=== PATIENT | female | born 1955 | race Caucasian/White ===

== ENCOUNTER 2019-01-03 14:56 | Inpatient (IN) | payer OTHER ==
[~2019-01-03] VITALS: Ht 167.6 cm; Wt 168.7 kg
[~2019-01-03 14:56] MED LIST: GLUCOPHAGE XR500 MG PO; LORTAB PO; NORVASC 5 MG TAB5 MG PO; PROZAC40 MG PO; VALIUM5 MG PO
[2019-01-03 14:57] VITALS: BP 148/80
[2019-01-03 15:23] LABS: URINE BLOOD 2+ (Negative); URINE CLARITY CLOUDY; URINE COLOR YELLOW; URINE GLUCOSE-RANDOM* 1+ (Negative); URINE KETONES TRACE (Negative); URINE LEUKOCYTES-REFLEX TRACE (Negative); URINE NITRITE-REFLEX NEGATIVE (Negative); URINE PROTEIN (DIPSTICK) 2+ (Negative); URINE SPECIFIC GRAVITY >= 1.030 (1.005-1.035); URINE UROBILINOGEN 0.2 E.U./dl (0.2-1.0)
[2019-01-03 15:25] LABS: ICTOTEST (BILI CONFIRMATORY) Negative (Negative); URINE BILIRUBIN NEGATIVE (Negative)
[2019-01-03 15:37] LABS: BACTERIA-REFLEX >30 Many /HPF (None Seen); CASTS None Seen /LPF (None Seen); CRYSTALS None Seen /LPF (None Seen); SQUAMOUS 4-10 Moderate /LPF (0-3); URINE RBC None Seen /HPF (0-2); URINE WBC-REFLEX 6-15 Few /HPF (0-5)
[2019-01-03] MEDS ORDERED: LOSARTAN-HCTZ1 EAC1 PO (15:38)
[2019-01-03] MEDS ORDERED: GLIMEPIRIDE4 MG PO (15:38)
[2019-01-03] MEDS ORDERED: BENADRYL25 MG PO (15:39)
[2019-01-03] MEDS ORDERED: TOPROL XL25 MG PO (15:39)
[2019-01-03] MEDS ORDERED: CHILDREN'S ASPI81 M1 PO (15:39)
[2019-01-03] MEDS ORDERED: LIPITOR10 MG PO (15:39)
[2019-01-03] MEDS ORDERED: TYLENOL325 MG PO (15:40)
[2019-01-03] MEDS ORDERED: ALEVE220 MG PO (15:40)
[2019-01-03] MEDS ORDERED: IBUPROFEN 200200 M1 PO (15:40)
[2019-01-03] MEDS ORDERED: XANAX 0.25 MG0.25 MG PO (15:41)
--- NOTE | 2019-01-03 16:12 | EKG ---
[address] [place] [address] ELECTROCARDIOGRAM REPORT Name: JAQUIHUNTREANTONIA ZARATEA [facility] [id number] Admission: 01/03/19 Attend Phys: Discharge: Date of : 51 Report #: [id number] THIS REPORT FOR: //name// [facility] ED Test Date: 2019-01-03 Test Time: 15:21:14 Pat Name: HUNTER NAILS Department: Room: Gender: F Area Sales Manager: MELANIE : 1955 Requested By: Luis Felipe Swan Order Number: [id number] MD: Cuauhtemoc Brown Measurements Intervals [place] Rate: 81 P: 24 ME: 168 QRS: 10 QRSD: 93 T: 48 QT: 392 QTc: 455 Interpretive Statements Sinus rhythm Occasional premature ventricular complexes Compared to ECG 07/17/2010 07:12:48 Ventricular premature complex(es) now present Electronically Signed On 01-03-2019 16:12:39 SKIING TEACHER by Cuauhtemoc Brown [email or web address] <ELECTRONICALLY SIGNED> By: Cuauhtemoc Brown MD, [facility] 01/03/19 1612 1521 1521 Cuauhtemoc Brown MD, FACC /EPI
[2019-01-03 16:32] LABS: HEMATOCRIT 30.5 % (37.0-47.0); HEMOGLOBIN 10.2 gm/dL (12.0-15.0); MCH 27.5 pg (26.0-34.0); MCHC 33.6 g/dL (28.0-37.0); PLATELET COUNT 202 thou/uL (150-400); RBC 3.71 mil/uL (4.20-5.00); RDW 15.2 % (10.5-14.5); WBC 21.6 thou/uL (4.0-11.0)
--- NOTE | 2019-01-03 16:34 | NUR ---
GETTING STANDING SCALE WT ON PT.
[2019-01-03 16:39] LABS: CALCIUM 9.3 mg/dL (8.5-10.1)
[2019-01-03 16:46] LABS: ALBUMIN 2.6 g/dL (3.4-5.0); TOTAL BILIRUBIN 0.6 mg/dL (<0.1-1.0); TOTAL PROTEIN 7.1 g/dL (6.4-8.2)
[2019-01-03 16:52] LABS: ABSOLUTE NEUTROPHILS 18.1 thou/uL (1.4-8.2)
[2019-01-03 16:53] LABS: PLATELET ESTIMATE NORMAL
[2019-01-03 17:41] VITALS: BP 116/45
[2019-01-03 18:01] VITALS: BP 118/62
[2019-01-03 18:30] VITALS: BP 129/58
[2019-01-03 19:30] VITALS: BP 117/61
--- NOTE | 2019-01-03 20:01 | NUR ---
PATIENT CAME UP FROM ER AT 1820. IV ANTIBITOCS STARTED. REPROT GIVEN TO NIGHT NURSE.
[2019-01-04 03:10] VITALS: BP 107/55
--- NOTE | 2019-01-04 03:32 | NUR ---
ASSUMED PT CARE 1899. PT ALERT AND OARIENTED. VSS. PT ADMISSION COMPLETED. IV DRESSING C/D/I, NO SIGNS OF INFILTRATION. PT UP TO BSC X1 ASSIST WITH WALKER. PICTURES DOCUMENTED OF Abhijit KING. PT CONSENT FORMS SIGNED. PT CALL RUDDY AND SALOMON SCALES WITHIN REACH. WILL CONTINUE POC UNTIL EOS.
[2019-01-04 08:04] VITALS: BP 119/55
--- NOTE | 2019-01-04 12:17 | NUR ---
INITIAL ASSESSMENT: Pt evaluated for d/c planning needs. Reviewed chart and spoke with nurse and pt. Pt is alert and oriented. Pt lives alone in house and was independent with ADL's prior to admission to the hospital. 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 Pt has walker and cane at home, and had home health in the past. Pt said she has been to rehab in the past. Pt is hopeful that she will be able to return home on d/c from hospital. Will remain available to assist as needed.
[2019-01-04 19:27] VITALS: BP 108/58
--- NOTE | 2019-01-04 19:53 | NUR ---
ASSUMED CARE THIS AM, SHIFT ASSESSMENT DONE, MEDS GIVEN, VSS. RH IV WENT BAD THIS AM, NEW IV STATED IN RIGHT FOREARM. ORDER RECEIVED FOR FOELY INSERTION. FOELY WAS INSERTED APPROX. 11 AM AND LEFT TO DEPENDENT DRAINAGE. ON IV ANTIBITOCS. DENIES NAUSEA, VOMITING, PAIN. WOUND CARE TEAM SAW THE PATIENT. NO ORDERS RECEIVED SO FAR. WILL CONTINUE TO ASSESS AND ASSIST WITH ADLs NEEDED.
--- NOTE | 2019-01-04 22:36 | NUR ---
REFUSED 2100 MEDS. AGITATED AND RESTLESS. SECOND ATTEMP MADE BY SECOND NURSE, WHICH PT ALSO REFUSED.
[2019-01-05 05:26] VITALS: BP 111/51
[2019-01-05 08:00] VITALS: BP 125/68
--- NOTE | 2019-01-05 08:59 | NUR ---
WOUND CONSULT: PT. WAS SEEN ON 01/04/[address] VASQUES AND MYSELF. PT. SUFFERES FROM LYMPEDEMA ALONG WITH CELLULITIS TO HER RIGHT LOWER EXTREMITY. PT. HAS ULCERATIONS TO BILATERAL LOWER EXTREMITYS IN RELATION TO THIS. RECOMMENDATIONS: WOUND CARE TO BILATERAL LOWER EXTREMITYS: GENTLY CLEANSE WITH WOUND CLEANSER OR NORMAL SALINE, APPLY SILVADENE TO WOUND BED, COVER WITH XEROFORM, ABD, KERLIX, SECURE WITH TAPE, COMPLETE CARES DAILY. PT. AND STAFF NURSE WERE INSTRUCTED ON PLAN OF CARE.
[2019-01-05 11:46] LABS: HEMOGLOBIN 9.3 gm/dL (12.0-15.0); MCH 27.5 pg (26.0-34.0); MCHC 33.3 g/dL (28.0-37.0); MCV 82.5 fL (80.0-100.0); RBC 3.4 mil/uL (4.20-5.00); RDW 15.1 % (10.5-14.5); WBC 13.8 thou/uL (4.0-11.0)
--- NOTE | 2019-01-05 14:25 | NUR ---
WOUND FOLLOW UP: PT. WAS SEEN TODAY BY DR. VASQUES AND MYSELF. PT. WOUNDS ARE NON-CHANGING FROM YESTERDAYS ASSESMENT. RECOMMENDATIONS: CONTINUE WITH CURRENT PLAN OF CARE. PT. AND STAFF NURSE WERE INSTRUCTED ON PLAN OF CARE.
[2019-01-05 16:30] VITALS: BP 126/63
--- NOTE | 2019-01-05 17:10 | NUR ---
VSS-AFEBRILE. WHEEZES IN BILATERAL LOWER LOBES, ROOM AIR. OOB WITH PHYSICAL THERAPY AND WALKER, ABLE TO AMBULATE HALLWAY. WOUND CARE TEAM IN TO ASSESS BILATERAL LOWER EXTRENITIES AND DRESS WOUNDS. BATH AND LINEN CHANGE. TOLERATED MEALS WITH NO REPORTED N/V. CALLS APPORIATELY FOR ANY NEEDED ASSISTANCE.
[2019-01-05 19:32] VITALS: BP 124/61
[2019-01-06 03:56] VITALS: BP 122/68
--- NOTE | 2019-01-06 04:00 | NUR ---
ASSUMED PT CARE 1899. PT ALERT AND ORIENTED. VSS. PT CAT IN PLACE, URINE YELLOW, GOOD OUTPUT. ATTEMPTED TO GAIN IV ACCESS X2, UNSUCCESSFUL. CHARGE NURSE INSERTED IV TO R FOREARM. REASSESSMENT COMPLETED. PT AUDIBLE WHEEZING, CTA BILAT AFTER BREATHING TREATMENTS. DRESSING TO BILAT LE C/D/I. R LE DRESSING REINFORCED. PT CALL LIGHT AND PERSONAL BELONGINGS WITHIN REACH. WILL CONTINUE POC UNTIL EOS.
[2019-01-06 08:20] VITALS: BP 113/58
[2019-01-06] MEDS ORDERED: CLEOCIN HCL150 MG PO (09:40)
[2019-01-06] MEDS ORDERED: SSD CREAM 1% 5050 GM TOP (09:41)
[2019-01-06] MEDS ORDERED: LEVAQUIN 500 M500 M2 PO (09:46)
--- NOTE | 2019-01-06 10:36 | HC ---
[facility] [address] [address] CONSULTATION Name: HUNTER NAILS Room #: 422-P [facility] IN M.R.#: [id number] Admission: 01/03/19 Attend Phys: Darcie Quesada Discharge: Date of : 53 Report #: [id number] THIS REPORT FOR: //name// CC: Darcie Serrano DATE OF SERVICE: 01/04/2019 CHIEF COMPLAINT: Lower extremity cellulitis and ulceration. HISTORY OF PRESENT ILLNESS: This is a 63-year-old female patient who was admitted to the hospital with sepsis and cellulitis and multiple ulcerations of her right lower extremity. I have been asked to see her with regard to wound care. The patient reports weeping, swelling and drainage. She has been cared for in the past at [facility]. PAST MEDICAL HISTORY: Positive for previous cholecystectomy and hernia repair, breast biopsy x 2, diabetes mellitus, hypertension, hiatal hernia, irritable bowel syndrome. ALLERGIES: KEFLEX, BACTRIM. MEDICATIONS: Fluoxetine, Glucophage, Hyzaar, Lipitor, glimepiride, Toprol-XL, Benadryl, Advil, Tylenol, Aleve, Xanax. FAMILY HISTORY: Noncontributory. 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 REVIEW OF SYSTEMS: CONSTITUTIONAL: The patient denies fever, chills or weight loss. NEUROLOGICAL: The patient denies focal weakness, numbness or tingling. EYES: The patient denies visual changes, redness or drainage. ENT: The patient denies earache, nasal drainage, sore throat. CARDIOVASCULAR: The patient denies chest pain, palpitation or diaphoresis. PULMONARY: The patient denies cough or shortness of breath. GASTROINTESTINAL: The patient denies nausea, vomiting, diarrhea or abdominal pain. ORTHOPEDIC: The patient does complain of pain, swelling, redness and drainage from her right lower extremity. Other systems in a 14-point review of systems are negative. PHYSICAL EXAMINATION: VITAL SIGNS: At this time include temperature 98.7, pulse 76, respiratory rate of 20, blood pressure 107/55. [facility] [address] [place] [address] CONSULTATION Name: HUNTER NAILS Room #: 422-P [facility] IN M.R.#: [id number] Admission: 01/03/19 Attend Phys: Darcie Quesada Discharge: Date of : 53 Report #: [id number] GENERAL: This is a chronically ill-appearing female patient who appears to be in minimal distress. HEENT: Head normocephalic. Nose and throat are clear. NECK: Supple. LUNGS: Clear. ABDOMEN: Soft. Bowel sounds present. EXTREMITIES: Lower extremities demonstrate palpable distal pulses. She has 2 to 3+ edema bilaterally from her mid thighs down to her feet. She has significant erythema, swelling and drainage to the right leg with multiple ulcerations most of which are crusted. There is no evidence of abscess at this time. NEUROLOGIC: The patient is alert and oriented and appropriate. LABORATORY DATA: Includes sodium 134, potassium 3.0, chloride 100, CO2 of 27, BUN 18, creatinine 1.0, glucose 170. White blood cell count 13.8 with a hemoglobin of 9.3, hematocrit of 28.0 and platelet count 215,000. CLINICAL IMPRESSION: 1. Cellulitis, right lower extremity. 2. Bilateral lower extremity lymphedema. 3. Multiple ulcerations secondary to lymphedema/venous insufficiency of the right lower extremity. 4. Diabetes mellitus. 5. Morbid obesity. RECOMMENDATIONS: At this point in time, the patient has been started on intravenous antibiotic therapy. We will recommend topical Xeroform gauze with topical Silvadene to the open areas of ulceration. We will do gentle compression with Kerlix. Recommend elevation for control of swelling at this time and then advance to more aggressive compression once the redness has improved. I do appreciate being asked to see the patient in consultation. <ELECTRONICALLY SIGNED> By: Elvis Rodriguez MD 01/06/19 1036 1707 2345 Elvis Rodriguez MD /nt
[2019-01-06 10:54] VITALS: BP 113/58
--- NOTE | 2019-01-06 12:08 | NUR ---
Received order from physician to arrange home health. Pt to be d/c home today. Reviewed chart and spoke with nurse, physician and pt. Pt said she does not want to return home today. Pt said she wants to stay until tomorrow. Explained that physician had discharged her and said she is medically ready for d/c. 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 Wound care physician is in agreement with plans to d/c home with home health. Offered home health services. Pt began crying and said she wants to stay at the hospital until Wednesday. Offered to send referral to SNF. Pt said she has no intention of going to SNF on d/c from hospital. Again, pt was offered home health services and she is agreeable. Pt did not have choice, and was agreeable with referral being sent to [facility]. Contacted [facility] and they will be able to provide home health. No other needs identified.
[2019-01-06 13:12] VITALS: BP 113/58
--- NOTE | 2019-01-06 16:26 | NUR ---
ASSUMED CARE OF PT AT 0700. ASSESSMENT COMPLETED. A&O,X4. DENIES PAIN. ROOM AIR, CLEAR/DIM LUNG SOUNDS, NO SOA. NON PRODUCTIVE COUGH NOTED. BILATERAL CELLULITIS, DRESSING CHANGED ORDERED, PICUTRES TAKEN UPON DISCHARGE. CAT IN PLACE, DISCONTINUED TODAY PER PROTOCOL. PT UP WITH X1 ASSIST TO USE BATHROOM. BM TODAY. HX DIABETES, NO INSULIN REQUIRED PER SLIDING SCALE, MEDS GIVEN ORDERED. NEW DISCHARGE ORDERS. PT VOICED CONCERNS ABOUT DISCHARGE, PHYSICIAN AWARE AND CASE MANAGEMENT NOTIFIED. NEW SCRIPTS FAXED TO PHARMACY, CARENOTES GIVEN. IV REMOVED, NO BLEEDING. DISCHARGE INFORMATION DISCUSSED WITH PT. 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 PT LEFT AT 1626.
--- NOTE | 2019-01-06 16:41 | NUR ---
WOUND FOLLOW UP: PT. WAS SEEN TODAY BY DR. VASQUES AND MYSELF. PT. LEGS ARE CLINICALLY BETTER TODAY THAN UPON ADMISSION. RECOMMENDATIONS: CONTINUE WITH CURRENT PLAN OF CARE. PT. AND STAFF NURSE WERE INSTRUCTED ON PLAN OF CARE.
== END 2019-01-06 16:56 | disposition home health service (06) | DRG 871 ==
LOC: ER 14:56 → 4E 16:43 → EROBS 16:43 → 4E 18:07
PROVIDERS: Emergency Medicine; ADMIT Hospitalist
DX: A41.9 Sepsis, unspecified organism (principal); E43 Unspecified severe protein-calorie malnutrition; L03.115 Cellulitis of right lower limb; L97.919 Non-pressure chronic ulcer of unspecified part of right lower leg with unspecified severity; N39.0 Urinary tract infection, site not specified; Z68.44 Body mass index [BMI] 60.0-69.9, adult; E11.9 Type 2 diabetes mellitus without complications; I10 Essential (primary) hypertension; I89.0 Lymphedema, not elsewhere classified; E66.01 Morbid (severe) obesity due to excess calories; I87.2 Venous insufficiency (chronic) (peripheral); Z79.899 Other long term (current) drug therapy; B96.20 Unspecified Escherichia coli [E. coli] as the cause of diseases classified elsewhere; Z23 Encounter for immunization; Z90.49 Acquired absence of other specified parts of digestive tract; Z88.2 Allergy status to sulfonamides; Z88.8 Allergy status to other drugs, medicaments and biological substances; Z79.82 Long term (current) use of aspirin
CPT/HCPCS: 10183; 10783

== ENCOUNTER → 2019-01-12 | Outpatient (CLI) | payer OTHER ==
[~2019-01-12] MED LIST changes: +ALEVE220 MG PO; +BENADRYL25 MG PO; +CHILDREN'S ASPI81 M1 PO; +CLEOCIN HCL150 MG PO; +GLIMEPIRIDE4 MG PO; +IBUPROFEN 200200 M1 PO; +LEVAQUIN 500 M500 M2 PO; +LIPITOR10 MG PO; +LOSARTAN-HCTZ1 EAC1 PO; +SSD CREAM 1% 5050 GM TOP; +TOPROL XL25 MG PO; +TYLENOL325 MG PO; +XANAX 0.25 MG0.25 MG PO
== END ==
LOC: HYPER 06:57
DX: L03.115 Cellulitis of right lower limb (principal); A41.9 Sepsis, unspecified organism; E66.01 Morbid (severe) obesity due to excess calories; I10 Essential (primary) hypertension; M19.90 Unspecified osteoarthritis, unspecified site; F32.9 Major depressive disorder, single episode, unspecified; F41.9 Anxiety disorder, unspecified; Z79.84 Long term (current) use of oral hypoglycemic drugs; Z79.82 Long term (current) use of aspirin; Z79.4 Long term (current) use of insulin; Z87.891 Personal history of nicotine dependence; Z68.43 Body mass index [BMI] 50.0-59.9, adult

== ENCOUNTER → 2019-02-01 | Outpatient (CLI) | payer OTHER | LOC: HYPER 01-25 07:19 | DX: L03.115 Cellulitis of right lower limb (principal); L03.116 Cellulitis of left lower limb; E66.01 Morbid (severe) obesity due to excess calories; I89.0 Lymphedema, not elsewhere classified; I10 Essential (primary) hypertension; M19.90 Unspecified osteoarthritis, unspecified site; A41.9 Sepsis, unspecified organism; F41.9 Anxiety disorder, unspecified; F32.9 Major depressive disorder, single episode, unspecified; Z79.84 Long term (current) use of oral hypoglycemic drugs; Z79.82 Long term (current) use of aspirin; Z79.4 Long term (current) use of insulin; Z68.43 Body mass index [BMI] 50.0-59.9, adult; Z99.2 Dependence on renal dialysis; Z87.891 Personal history of nicotine dependence ==

== ENCOUNTER → 2019-02-15 | Outpatient (CLI) | payer OTHER | LOC: HYPER 06:41 | DX: L03.115 Cellulitis of right lower limb (principal); L03.114 Cellulitis of left upper limb; I89.0 Lymphedema, not elsewhere classified; A41.9 Sepsis, unspecified organism; E66.01 Morbid (severe) obesity due to excess calories; I10 Essential (primary) hypertension; K21.9 Gastro-esophageal reflux disease without esophagitis; M19.90 Unspecified osteoarthritis, unspecified site; F32.9 Major depressive disorder, single episode, unspecified; F41.9 Anxiety disorder, unspecified; Z87.891 Personal history of nicotine dependence; Z79.4 Long term (current) use of insulin; Z68.43 Body mass index [BMI] 50.0-59.9, adult; Z79.84 Long term (current) use of oral hypoglycemic drugs; Z79.82 Long term (current) use of aspirin ==

== ENCOUNTER → 2019-03-14 | Outpatient (CLI) | payer OTHER | LOC: HYPER 03-06 07:02 | DX: L03.115 Cellulitis of right lower limb (principal); L03.116 Cellulitis of left lower limb; I10 Essential (primary) hypertension; I89.0 Lymphedema, not elsewhere classified; A41.9 Sepsis, unspecified organism; M19.90 Unspecified osteoarthritis, unspecified site; E66.01 Morbid (severe) obesity due to excess calories; R60.0 Localized edema; F41.9 Anxiety disorder, unspecified; F32.9 Major depressive disorder, single episode, unspecified; Z87.891 Personal history of nicotine dependence; Z79.84 Long term (current) use of oral hypoglycemic drugs; Z79.4 Long term (current) use of insulin; Z68.43 Body mass index [BMI] 50.0-59.9, adult ==

== ENCOUNTER → 2019-07-04 | Outpatient (CLI) | payer OTHER | LOC: HYPER 06:45 | DX: L03.115 Cellulitis of right lower limb (principal); A41.9 Sepsis, unspecified organism; E66.01 Morbid (severe) obesity due to excess calories; E11.9 Type 2 diabetes mellitus without complications; I89.0 Lymphedema, not elsewhere classified; R60.0 Localized edema; I10 Essential (primary) hypertension; K21.9 Gastro-esophageal reflux disease without esophagitis; M19.90 Unspecified osteoarthritis, unspecified site; F32.9 Major depressive disorder, single episode, unspecified; F41.9 Anxiety disorder, unspecified; Z79.84 Long term (current) use of oral hypoglycemic drugs; Z79.82 Long term (current) use of aspirin; Z79.4 Long term (current) use of insulin; Z87.891 Personal history of nicotine dependence; Z68.43 Body mass index [BMI] 50.0-59.9, adult ==

== ENCOUNTER → 2020-02-22 | Outpatient (CLI) | payer OTHER | LOC: HYPER 10:19 | DX: I83.028 Varicose veins of left lower extremity with ulcer other part of lower leg (principal); E11.622 Type 2 diabetes mellitus with other skin ulcer; L97.821 Non-pressure chronic ulcer of other part of left lower leg limited to breakdown of skin; I89.0 Lymphedema, not elsewhere classified; L03.115 Cellulitis of right lower limb; L03.116 Cellulitis of left lower limb; E11.40 Type 2 diabetes mellitus with diabetic neuropathy, unspecified; I10 Essential (primary) hypertension; M19.90 Unspecified osteoarthritis, unspecified site; E66.01 Morbid (severe) obesity due to excess calories; F41.9 Anxiety disorder, unspecified; F32.9 Major depressive disorder, single episode, unspecified; Z68.43 Body mass index [BMI] 50.0-59.9, adult; Z87.891 Personal history of nicotine dependence; Z79.82 Long term (current) use of aspirin; Z79.4 Long term (current) use of insulin ==

== ENCOUNTER 2021-03-29 16:28 | Inpatient (IN) | payer OTHER ==
[~2021-03-29] VITALS: Ht 167.6 cm; Wt 156.1 kg
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
[2021-03-29 16:29] VITALS: BP 151/74
--- NOTE | 2021-03-29 16:50 | NUR ---
BRANDY ARREDONDO, PT FRIEND
[2021-03-29 16:55] LABS: ABSOLUTE NEUTROPHILS 7.3 thou/uL (1.4-8.2); EOSINOPHILS 1.8 % (0.0-3.0); HEMATOCRIT 32.3 % (37.0-47.0); HEMOGLOBIN 10.5 gm/dL (12.0-15.0); LYMPHOCYTES 12.6 % (24.0-44.0); MCH 28.8 pg (26.0-34.0); MCHC 32.6 g/dL (28.0-37.0); MCV 88.5 fL (80.0-100.0); MONOCYTES 7.4 % (1.0-8.0); PLATELET COUNT 226 thou/uL (150-400); POLYS 77.2 % (36.0-66.0); RBC 3.65 mil/uL (4.20-5.00); RDW 17.3 % (10.5-14.5); WBC 9.4 thou/uL (4.0-11.0)
[2021-03-29 17:05] LABS: INR 2.52; PROTIME 26.3 Seconds (10.5-12.1)
[2021-03-29 17:07] LABS: ANION GAP 12 mmol/L (7-16); BUN 24 mg/dL (7-18); CALCIUM 8.7 mg/dL (8.5-10.1); CHLORIDE 107 mmol/L (98-107); CO2 26 mmol/L (21-32); GLUCOSE 196 mg/dL (74-106); POTASSIUM 4.5 mmol/L (3.5-5.1); SODIUM 145 mmol/L (136-145)
[2021-03-29 17:13] LABS: BE(vivo) 1.4 mmol/L (-2 to +3); HCO3 26.1 mmol/L (22.0-26.0); PCO2 41.3 mmHg (35.0-45.0); PO2 83.1 mmHg (80.0-100.0); pH 7.418 (7.360-7.450); sO2 96.4 % (92.0-98.0)
[2021-03-29 17:16] LABS: ALBUMIN 3.1 g/dL (3.4-5.0); SGOT 11 U/L (15-37); SGPT 15 U/L (14-59); TOTAL BILIRUBIN 0.5 mg/dL (0.2-1.0); TOTAL PROTEIN 6.5 g/dL (6.4-8.2); TROPONIN-I <0.06 ng/mL (<0.06)
--- NOTE | 2021-03-29 18:00 | NUR ---
UNABLE TO ESTABLISH IV ACCESS. IV TEAM BEING PAGED.
[2021-03-29 18:44] VITALS: BP 152/91
[2021-03-29 19:15] VITALS: BP 138/74
[2021-03-29] MEDS ORDERED: WARFARIN SODIUM2 MG PO (22:39)
[2021-03-29] MEDS ORDERED: JANTOVEN6 MG PO (22:40)
[2021-03-29] MEDS ORDERED: DILTIAZEM ER180 M2 PO (22:40)
[2021-03-29] MEDS ORDERED: METFORMIN HCL500 MG PO (22:45)
[2021-03-29] MEDS ORDERED: METFORMIN HCL500 M1 PO (22:47)
[2021-03-29] MEDS ORDERED: BUMEX2 MG PO (22:49)
[2021-03-29] MEDS ORDERED: COZAAR 25 MG TA25 M1 PO (22:51)
[2021-03-30 00:21] VITALS: BP 145/91
[2021-03-30 04:00] VITALS: BP 135/69
[2021-03-30 05:11] LABS: HEMATOCRIT 31.7 % (37.0-47.0); HEMOGLOBIN 10.3 gm/dL (12.0-15.0); MCH 28.8 pg (26.0-34.0); MCHC 32.4 g/dL (28.0-37.0); MCV 88.8 fL (80.0-100.0); RBC 3.57 mil/uL (4.20-5.00); RDW 17.1 % (10.5-14.5); WBC 8.3 thou/uL (4.0-11.0)
[2021-03-30 05:20] LABS: INR 2.13; PROTIME 22.4 Seconds (10.5-12.1)
[2021-03-30 05:22] LABS: CALCIUM 8.1 mg/dL (8.5-10.1); CREATININE 0.9 mg/dL (0.6-1.0); POTASSIUM 3.9 mmol/L (3.5-5.1)
--- NOTE | 2021-03-30 05:46 | NUR ---
PT ARRIVED TO UNIT APPROX 191. ADMISSION AND ASSESSMENT COMPLETED, CONSENTS SIGNED. PT REPORTS BEING SOB WITH MINIMAL EXERTION AND C/O HEART FLUTTERING/PALPITATIONS. ECHO AND BLE US COMPLETED AT BEDSIDE. PT CONCERNED ABOUT RECEIVING HER NIGHT MEDICATIONS--WARFARIN AND DILTIAZEM; ALSO ASKED IF SHE WAS SUPPOSED TO GET LASIX. OBTAINED ORDERS TO START BOTH MEDS, WELL IV LASIX TO IMPROVED HER BREATHING, AND ORDER FOR CAT FOR ACCURATE I&O. SHE HAS BEEN AFIB OVERNIGHT, HR IN LOW 100'S, AFTER RECEIVING LASIX HER HR WAS IN 80'S. MULTIPLE SMALL WOUNDS R/T CELLULITIS NOTED ON LEGS AND ONE SPOT ON ABD, TOOK PHOTOS PER PROTOCOL. ALSO HAS MULTIPLE BRUISES FROM RECENT FALL AND YEASTY REDNESS UNDER ABD FOLDS. NO OTHER CONCERNS, WILL CONTINUE TO MONITOR.
[2021-03-30 08:00] VITALS: BP 135/69
--- NOTE | 2021-03-30 10:46 | 2DMMODE ---
[facility] [place] [place] [address] 2 D/M-MODE ECHOCARDIOGRAM Name: HUNTER NAILS Gabe Room #: 213-P ADM IN M.R.#: [id number] Admission: 03/29/21 Attend Phys: Clarissa Zurita MD Discharge: Date of : 51 Report #: [id number] THIS REPORT FOR: cc: Liya Serrano MD, Julie MD Lammoglia, Francisco J. MD ~ APPROVED REPORT Study performed: 03/29/2021 19:24:43 EXAM: Comprehensive 2D, Doppler, and color-flow Echocardiogram Patient Location: Bedside Room #: 213 Status: stat BSA: 2.44 HR: 102 bpm BP: 132/87 mmHg Rhythm: Atrial Fibrillation Other Information Study Quality: Adequate Risk Factors: Cardiac Risk Factors: HTN Indications Congestive Heart Failure Atrial Fibrillation R/O Pericardial Effusion 2D Dimensions IVSd: 11.88 (7-11mm) LVOT Diam: 21.00 (18-24mm) LVDd: 54.40 mm PWd: 14.96 (7-11mm) Ascending Ao: 35.02 (22-36mm) LVDs: 39.78 (25-40mm) Aortic Root: 29.27 mm LV Single Plane 4CH: 47.41 % LV Single Plane 2CH: 56.97 % Volumes Left Atrial Volume (Systole) Single Plane 4CH: 113.01 mL Single Plane 2CH: 123.97 mL LA ESV Index: 57.00 mL/m2 [facility] [address] [place] [address] 2 D/M-MODE ECHOCARDIOGRAM Name: HUNTER NAILS Room #: 213-P ADM IN .R.#: [id number] Admission: 03/29/21 Attend Phys: Clarissa Zurita MD Discharge: Date of : 51 Report #: [id number] Aortic Valve AoV Peak Avtar.: 1.73 m/s AO Peak Gr.: 12.71 mmHg LVOT Max P.94 mmHg LVOT Max V: 0.86 m/s KEO Vmax: 1.38 cm2 Pulmonary Valve PV Peak Avtar.: 1.35 m/s PV Peak Gr.: 7.47 mmHg Tricuspid Valve TR Peak Avtar.: 3.12 m/s RAP Estimate: 10.00 mmHg TR Peak Gr.: 39.62 mmHg PA Pressure: 50.00 mmHg Left Ventricle The left ventricle is normal size. There is normal LV segmental wall motion. Mild to moderate concentric left ventricular hypertrophy. Left ventricular systolic function is normal. The left ventricular ejection fraction is within the normal range. LVEF is 50-55%. This study is not technically sufficient to allow evaluation of the LV diastolic function due to atrial fibrillation. Right Ventricle Right ventricle is dilated. The right ventricular systolic function is normal. Atria Left atrium is severely dilated. Right atrium is severely dilated. Aortic Valve The aortic valve is mildly sclerotic. No aortic regurgitation is present. There is no aortic valvular stenosis. Mitral Valve The mitral valve is normal in structure. moderate mitral regurgitation with an eccentric jet. No evidence of mitral valve stenosis. Tricuspid Valve The tricuspid valve is normal in structure. Moderate tricuspid regurgitation. Pulmonary artery pressure is 50 mmHg. Pulmonic Valve The pulmonary valve is normal in structure. Mild pulmonic regurgitation. [facility] [address] [place] [address] 2 D/M-MODE ECHOCARDIOGRAM Name: HUNTER NAILS Room #: 213-P [facility] IN ..#: [id number] Admission: 03/29/21 Attend Phys: Clarissa Zurita MD Discharge: Date of : 51 Report #: [id number] Great Vessels The aortic root is normal in size. The ascending aorta is normal in size. IVC is dilated and collapses >50% with inspiration. Pericardium There is no pericardial effusion. <Conclusion> The left ventricle is normal size. Mild to moderate concentric left ventricular hypertrophy. LVEF is 50-55%. Right ventricle is dilated. The right ventricular systolic function is normal. Left atrium is severely dilated. Right atrium is severely dilated. The aortic valve is mildly sclerotic. The mitral valve is normal in structure. moderate mitral regurgitation with an eccentric jet. The tricuspid valve is normal in structure. Moderate tricuspid regurgitation. Pulmonary artery pressure is 50 mmHg. The pulmonary valve is normal in structure. Mild pulmonic regurgitation. The aortic root is normal in size. There is no pericardial effusion. <ELECTRONICALLY SIGNED> By: Nicolas Saleh MD 03/30/21 1046 1046 1046 Nicolas Saleh MD /INF
[2021-03-30 14:00] VITALS: BP 130/70
[2021-03-30] MEDS ORDERED: METFORMIN HCL500 M3 PO (14:47)
--- NOTE | 2021-03-30 18:38 | NUR ---
AAOX4. CALM, COOPERATIVE. STAYS INFORMED ABOUT HER CARE. AFIB PER TELE. DR. RODRÍGUEZ RESTARTS HOME MEDS. DR. YUNG SEES. FALL PRECAUTIONS IN PLACE.
[2021-03-30 20:15] VITALS: BP 140/84
--- NOTE | 2021-03-31 03:17 | NUR ---
PATIENT COMPLAIN OF LEFT THUMB DISCOMFORT.DIDN'T WANT ANY PAIN MEDS.PATIENT ON O2 2L NC;SOMETIMES O2 WILL FALL OFF OR SOMETIMES PT TAKING IT OFF.COMPLAIN THAT SHE HAD NOT ANY BM TODAY.MONITOR SHOWS SA.POC CONTINUED.
[2021-03-31 04:45] VITALS: BP 129/92; BP 150/81
[2021-03-31 06:55] LABS: HEMATOCRIT 33.5 % (37.0-47.0); HEMOGLOBIN 10.7 gm/dL (12.0-15.0); MCH 28.6 pg (26.0-34.0); MCV 89.3 fL (80.0-100.0); RBC 3.75 mil/uL (4.20-5.00); RDW 17.2 % (10.5-14.5); WBC 8.5 thou/uL (4.0-11.0)
[2021-03-31 06:59] LABS: CALCIUM 8.2 mg/dL (8.5-10.1); CREATININE 0.8 mg/dL (0.6-1.0); MAGNESIUM 1.8 mg/dL (1.8-2.4); POTASSIUM 4.5 mmol/L (3.5-5.1)
--- NOTE | 2021-03-31 07:05 | EKG ---
[address] [facility] 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
[2021-03-31 08:00] VITALS: BP 140/83
--- NOTE | 2021-03-31 09:13 | EKG ---
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 : 1955 Requested By: Clarissa Zurita Order Number: [id number] MD: Cuauhtemoc Brown Measurements Intervals [place] Rate: 114 P: [place]: QRS: 21 QRSD: 80 T: 28 QT: 351 QTc: 484 Interpretive Statements Atrial fibrillation Compared to ECG 01/03/2019 15:21:14 Sinus rhythm no longer present Ventricular premature complex(es) no longer present Electronically Signed On 03-31-2021 9:12:50 CDT by Cuauhtemoc Brown [email or web address] <ELECTRONICALLY SIGNED> By: Cuauhtemoc Brown MD, [facility] 03/31/2112 170 01 Cuauhtemoc Brown MD, FACC /EPI
[2021-03-31 12:00] VITALS: BP 138/73
--- NOTE | 2021-03-31 12:18 | NUR ---
ALERT AND ORIENTED, VITALS STABLE. TOLERATING DIET W/O NAUSEA. PT AND OT EVALUATED PATIENT. CELLULITIS NOTED ON BLE AND WOUND CARE ON BOARD. CAT WITH ADEQATE OUTPUT NOTED. WILL CONTINUE WITH POC.
--- NOTE | 2021-03-31 13:10 | NUR ---
Assess due to pt with class III extreme obesity, BMI 61. Admit with CHF. Hx diabetes. BG are 130-181, requires metformin, ss insulin, glimerperide. Will add carb control to current diet order. Nutrition education provided-see RD nutrition education documentation. Low nutrition risk
[2021-03-31 16:00] VITALS: BP 145/76
--- NOTE | 2021-03-31 16:28 | NUR ---
BPCI letter provided to patient, lives in home setting
--- NOTE | 2021-03-31 17:20 | NUR ---
Patient admits with a fall and CHF exacerbation. Patient is rec IV lasix. Patient reports a stay at [facility] in which she reports they were consistantly discussing rehab. She did not want to go to rehab. She reports she discharged with home health. She was on service with [facility] care. She reports she had a disagreement with an RN and questions if will accept her back [facility] service[facility] with [facility] in am. She also reports Dr Thompson mentioned and cardiac HH agency. She requests caset sp with Dr Thompson regarding agency. Patient wants to return home she does not want rehab. She is agreeable to care. She lives in ran home with one step to enter from [facility]. She lives alone. She has a walker and lift chair in home. She retired. Strategic Partner Development Manager is Dr Silva. She is a patient of wound care clinic. Casemgt following for dc planning.
[2021-03-31 20:15] VITALS: BP 147/79
[2021-04-01 04:45] VITALS: BP 140/87
[2021-04-01 04:53] LABS: HEMATOCRIT 33.4 % (37.0-47.0); HEMOGLOBIN 10.5 gm/dL (12.0-15.0); MCH 28.5 pg (26.0-34.0); MCHC 31.6 g/dL (28.0-37.0); MCV 90.1 fL (80.0-100.0); RBC 3.71 mil/uL (4.20-5.00); WBC 9.1 thou/uL (4.0-11.0)
[2021-04-01 05:32] LABS: CALCIUM 8.3 mg/dL (8.5-10.1); CREATININE 0.9 mg/dL (0.6-1.0); POTASSIUM 3.7 mmol/L (3.5-5.1)
[2021-04-01 08:00] VITALS: BP 148/82
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
--- NOTE | 2021-04-01 08:19 | HC ---
[facility] [place] [address] CONSULTATION Name: HUNTER NAILS Room #: 213-P ADM IN M.R.#: [id number] Admission: 03/29/21 Attend Phys: Clarissa Zurita MD Discharge: Date of : 51 Report #: [id number] THIS REPORT FOR: cc: Liya Serrano MD, Julie MD [place],Cheng Diaz MD ~ DATE OF SERVICE: 03/30/2021 WOUND CARE CONSULTATION NOTE REASON FOR CONSULTATION: Super morbid obesity with bilateral lymphedema of lower extremities with bilateral leg cellulitis and open wounds of left leg. 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 She is a wound care patient of Dr. Rodriguez and Dr. Hurtado and seen in the past for troubles with her legs. She has chronic lymphedema. She does not use compression at home. She is admitted after a fall at home and for atrial fibrillation and for cellulitis and wounds of the lower extremities. She has been admitted in the past for cellulitis of her legs. She has had some knee pain after a mechanical fall. Wound care is consulted due to cellulitis of both legs. The patient complains of some weepiness of both legs. She gets some moisture in her shoes. ALLERGIES: BACTRIM AND KEFLEX. PAST MEDICAL HISTORY: Super morbid obesity, lower extremity edema, history of cellulitis of the legs requiring hospitalization in the past, atrial fibrillation with rapid ventricular response, congestive heart failure, jfu-qohamoi-gffrurowo diabetes mellitus. PAST SURGICAL HISTORY: Cholecystectomy, hernia repair, breast biopsy, nasopharyngeal tumor surgery. MEDICATIONS: Currently include IV Zosyn. RADIOLOGIC STUDIES: Ultrasound shows no evidence of deep vein thrombosis. PHYSICAL EXAMINATION: GENERAL: Shows a pleasant elderly woman with super morbid obesity. She has no respiratory distress. HEENT: Mucous membranes are moist. She is edentulous. ABDOMEN: Super morbidly obese. EXTREMITIES: Shows chronic lymphedema. The patient has some skin blebs of both legs without active weeping. There is mild erythema of the right leg [facility] [address] [place] [address] CONSULTATION Name: JAQUIHUNTER L Room #: 213-P [facility] [place] IN .R.#: [id number] Admission: 03/29/21 Attend Phys: Clarissa Zurita MD Discharge: Date of : 51 Report #: [id number] circumferentially. There is erythema of the left leg with open wounds, largest 1.2 cm of the left lateral calf with some crusted drainage. No active weeping. IMPRESSION: 1. Super morbid obesity with alveolar hypoventilation. 2. History of atrial fibrillation. 3. Bilateral lower extremity lymphedema. 4. Moderate protein-calorie malnutrition, albumin 3.1. 5. Diabetes mellitus 2 with skin complications. 6. Cellulitis of right and left leg. 7. Open draining wound of left leg. PLAN: Wound culture ordered for open wound of the left leg. Continue IV Zosyn. We will consider compression of the lower extremities once cellulitis has resolved. Wound care team will follow. Topical gentamicin to open wound of the left leg with foam border. <ELECTRONICALLY SIGNED> By: Cheng Romero MD 04/01/21 0819 [id number] Chneg Romero MD /nt
[2021-04-01 12:22] VITALS: BP 128/76
--- NOTE | 2021-04-01 15:31 | NUR ---
Received awake on bed. Due medications given as prescribed, able to swallow meds w/o difficulty. Vital signs stable. On telemetry; no complains and signs of chest pain, crushing sensation and heaviness. Assisted in ADLs. On O2 at 2lpm via nasal cannula- not using O2 at home; weanning off. On heart healthy, carb controlled diet- tolerating well; assisted in eating and drinking; no nausea, no vomiting and no abdominal pain noted. On blood sugar monitoring, taken and recorded accordingly. With dewey in place- draining well; output measured and recorded accordingly. With cellulitis- bilateral LE. With SL at L AC- SL; on IV antibiotics. Falls bundle in place. No complains of pain made during assessment. Pt very anxious today re: discharge disposition; wanting to go home with home health rather than SNF or Rehab- informed pt re: recommendations made by physician and therapists- Dr Marin informed re: this. Complained of dyspepsia- Dr Marin informed since pt has no PRN meds- orders obtained- med given as prescribed. To continue monitoring patient.
[2021-04-01 16:00] VITALS: BP 156/84
--- NOTE | 2021-04-01 16:40 | NUR ---
[facility] cannot accept patient for home health services due to non compliance. Patient met with [facility] today. Patient agreeable to work with therapy. She reports interest in [facility]. Lilliam SULLIVAN practioner evaled patient and agreeable for [facility] admission. patient needs to determine if her dog at vet if she can extend his stay. She wants to determine that first.
[2021-04-01 20:26] VITALS: BP 140/78
--- NOTE | 2021-04-02 04:00 | NUR ---
ASSUMED PT CARE AT AROUND 1915 HRS. PT IS PLEASANT AND CONVERSATIONAL.CAT TO D/D, DIURESING WELL.PT DENIES PAIN. LYMHEDEMA WRAPS TO BLE .PT MOVES SELF IN BED-THUS REFUSING TO BE REPOSITIONEDSATTING WELL ON .AWAITING REHAB AUTHOURIZATION.
[2021-04-02 04:10] VITALS: BP 133/84
[2021-04-02 04:31] LABS: INR 2.03; PROTIME 21.4 Seconds (10.5-12.1)
[2021-04-02 05:47] LABS: CALCIUM 8.4 mg/dL (8.5-10.1); CREATININE 0.9 mg/dL (0.6-1.0); MAGNESIUM 1.7 mg/dL (1.8-2.4); POTASSIUM 3.5 mmol/L (3.5-5.1)
[2021-04-02 07:36] VITALS: BP 136/83
[2021-04-02 11:17] VITALS: BP 133/75
--- NOTE | 2021-04-02 13:15 | NUR ---
ASSUMED PT CARE THIS AM. PT VSS, A&OX4. PATIENT ABLE TO MAKE NEEDS KNOWN. CAT CATHETER IN PLACE, DRAINING WELL. PATIENT HAS NOT GOTTEN UP DURING THIS SHIFT TO AMBULATE. BILATERAL LOWER EXTREMETIES ARE WRAPPED. REDNESS NOTICED TO THE PANUS AREA. IV PATENT, SALINE LOCKED. TOOK MORNING MEDS WITHOUT ISSUE. PATIENT REPORTS FEELING HOPELESS AND DOWN, CONSULT PLACED FOR PSYCHIATRIST. PATIENT ON TELEMETRY. FALL PRECAUTIONS ARE IN PLACE.
--- NOTE | 2021-04-02 15:05 | NUR ---
Case discussed with the care team and cardiology. Pt agreeable to [facility] acute rehab stay. They can accept her tomorrow. Pt still diuresing today. Pt had long visit with cardiology today. Will fax referrals to [facility] as possible hh options when dc'd from acute rehab as [facility] will not accept her back.
--- NOTE | 2021-04-02 17:33 | NUR ---
PLan for [facility] tomorrow. Patient with multiple questions regarding [facility] requested liason see patient in am.
[2021-04-02 17:45] VITALS: BP 128/61
[2021-04-02 19:29] VITALS: BP 138/61
[2021-04-03 04:02] VITALS: BP 137/78
--- NOTE | 2021-04-03 04:49 | NUR ---
tova nevarez wrapped with melissa wraps, started nystatin powder in rash areas of groin and legs, no c/o pain, ex. catheter with yellow urine, vss, plan tx to [facility] today, will con't to monitor per ppoc.
[2021-04-03 07:25] VITALS: BP 128/76
[2021-04-03 09:02] VITALS: BP 128/76
[2021-04-03 09:16] LABS: CREATININE 0.8 mg/dL (0.6-1.0)
--- NOTE | 2021-04-03 11:11 | NUR ---
Pt dcing to [facility] acute rehab today. [facility] did call back and can accept the pt for hh services when dc'd from rehab.
[2021-04-03] MEDS ORDERED: LEVOFLOXACIN500 MG PO (12:04)
[2021-04-03] MEDS ORDERED: NYAMYC15 GM TOP (12:04)
[2021-04-03] MEDS ORDERED: CALTRATE-600 W1 EACH PO (12:04)
[2021-04-03] MEDS ORDERED: PEPCID20 MG PO (12:04)
[2021-04-03] MEDS ORDERED: MAGNESIUM400 MG PO (12:04)
[2021-04-03] MEDS ORDERED: DEMADEX20 MG PO (12:04)
[2021-04-03] MEDS ORDERED: COLACE 100 MG100 MG PO (12:04)
[2021-04-03] MEDS ORDERED: K-DUR 20 MEQ T20 MEQ PO (12:04)
[2021-04-03] MEDS ORDERED: HUMALOG100 UNIT/1 SUBQ (12:04)
== END 2021-04-03 15:22 | DRG 291 ==
LOC: ER 16:28 → 2N 18:36 → EROBS 18:36 → 2N 19:03
PROVIDERS: Hospitalist; Nurse Practitioner; Nurse Practitioner Acute Care; Physician Assistant; ADMIT Internal Medicine; ATTEND Internal Medicine
DX: I11.0 Hypertensive heart disease with heart failure (principal); J96.01 Acute respiratory failure with hypoxia; I48.20 Chronic atrial fibrillation, unspecified; L03.115 Cellulitis of right lower limb; L03.116 Cellulitis of left lower limb; E66.2 Morbid (severe) obesity with alveolar hypoventilation; E44.0 Moderate protein-calorie malnutrition; Z68.43 Body mass index [BMI] 50.0-59.9, adult; I50.33 Acute on chronic diastolic (congestive) heart failure; Z20.822 Contact with and (suspected) exposure to COVID-19; S81.802A Unspecified open wound, left lower leg, initial encounter; E11.628 Type 2 diabetes mellitus with other skin complications; E83.42 Hypomagnesemia; M17.0 Bilateral primary osteoarthritis of knee; F32.9 Major depressive disorder, single episode, unspecified; K58.9 Irritable bowel syndrome, unspecified; R53.81 Other malaise; K44.9 Diaphragmatic hernia without obstruction or gangrene; I89.0 Lymphedema, not elsewhere classified; E11.42 Type 2 diabetes mellitus with diabetic polyneuropathy; R41.89 Other symptoms and signs involving cognitive functions and awareness; I08.1 Rheumatic disorders of both mitral and tricuspid valves; Z79.01 Long term (current) use of anticoagulants; Z88.2 Allergy status to sulfonamides; Z88.8 Allergy status to other drugs, medicaments and biological substances; Z90.49 Acquired absence of other specified parts of digestive tract; Z91.11 Patient's noncompliance with dietary regimen; Z91.14 Patient's other noncompliance with medication regimen; W18.39XA Other fall on same level, initial encounter; Y93.89 Activity, other specified; Y92.89 Other specified places as the place of occurrence of the external cause; Y99.8 Other external cause status
CPT/HCPCS: 10081

== ENCOUNTER 2021-04-02 07:59 | Inpatient (IN) | payer OTHER ==
[~2021-04-02] VITALS: Ht 167.6 cm; Wt 150.1 kg
[~2021-04-02 07:59] MED LIST changes: +BUMEX2 MG PO; +COZAAR 25 MG TA25 M1 PO; +DILTIAZEM ER180 M2 PO; +JANTOVEN6 MG PO; +METFORMIN HCL500 M1 PO; +METFORMIN HCL500 M3 PO; +METFORMIN HCL500 MG PO; +WARFARIN SODIUM2 MG PO
[2021-04-03] MEDS ORDERED: K-DUR 20 MEQ T20 MEQ PO (12:04)
[2021-04-03] MEDS ORDERED: COLACE 100 MG100 MG PO (12:04)
[2021-04-03] MEDS ORDERED: PEPCID20 MG PO (12:04)
[2021-04-03] MEDS ORDERED: MAGNESIUM400 MG PO (12:04)
[2021-04-03] MEDS ORDERED: NYAMYC15 GM TOP (12:04)
[2021-04-03] MEDS ORDERED: LEVOFLOXACIN500 MG PO (12:04)
[2021-04-03] MEDS ORDERED: HUMALOG100 UNIT/1 SUBQ (12:04)
[2021-04-03] MEDS ORDERED: DEMADEX20 MG PO (12:04)
[2021-04-03] MEDS ORDERED: CALTRATE-600 W1 EACH PO (12:04)
[2021-04-03 15:41] VITALS: BP 126/69
--- NOTE | 2021-04-03 18:50 | NUR ---
PATIENT ARRIVED FROM THIS DAY AT APPROX 1530. ORIENTED TO ROOM. ASSESSMENT AND ADMISSION COMPLETED. VOICED NEED FOR COUMADIN; PHARMACY NOTIFIED. ALL OTHER MEDS RESTARTED. TRANSFERRED FROM CHAIR TO BED X2 ASSIST. STEPHANIA IN PLACE; TO BE DC'D 04/04/21. TOLERATED DINNER W NO ISSUES. WILL ENDORSE TO NOC. RN
[2021-04-03 20:37] VITALS: BP 133/63
--- NOTE | 2021-04-04 02:49 | NUR ---
ASSUMED CARE OF PT CARE OF PT AT 1915 ON 04/03/21. IS A&OX4 & ANXIOUS. DENIES PAIN IN BILAT LES. WRAPS C/D/I. CAT IN PLACE. IS ON ROOM AIR, BUT WEARS 2L AT HS PER NC. PT IS UP WITH MAX ASSIST OF 2, GB WALKER. FALL PRECAUTIONS & HOURLY ROUNDING CONTINUED THIS SHIFT. LABS & VITALS REVIEWED. PT REQUESTED SLEEP AID. PAIN MANAGEMENT NURSE WAS CONTACTED. ORDERS WERE GIVEN. WHEN THIS NURSE ATTEMPTED TO TAKE MED TO PT, PT WAS SOUND ASLEEP. PT IS CURRENTLY SLEEPING. CALL LIGHT WITHIN REACH. WILL CONTINUE TO MONITOR.
[2021-04-04 04:32] LABS: HEMOGLOBIN 11.5 gm/dL (12.0-15.0); MCH 28.6 pg (26.0-34.0); MCV 89.5 fL (80.0-100.0); RBC 4.02 mil/uL (4.20-5.00); RDW 16.8 % (10.5-14.5); WBC 10.8 thou/uL (4.0-11.0)
[2021-04-04 04:51] LABS: CALCIUM 8.6 mg/dL (8.5-10.1); CREATININE 0.9 mg/dL (0.6-1.0); POTASSIUM 3.9 mmol/L (3.5-5.1)
[2021-04-04 07:15] VITALS: BP 127/72
[2021-04-04 10:11] LABS: INR 1.72; PROTIME 18.3 Seconds (10.5-12.1)
--- NOTE | 2021-04-04 11:50 | NUR ---
tired to visit with anthony, unable rt she working with ot in her room.
--- NOTE | 2021-04-04 11:56 | NUR ---
Nutrition: pt transferred to rehab unit with AE CHF/medical complexity w/ general debility. Consult received. Fair/good intake at 50-100% of meals. Hx DM on Carb controlled Heart healthy restriction. BMI 61, extreme class 3 obesity. CHF/DM education completed on 03/[address] on acute unit. Pt familiar but did report recent "falling off the wagon" with diet. BG 96-207, on metformin, insulin, glimepiride. Wound indication for bilateral lymphedema, redness improving per wound care. Low nutrition risk.
--- NOTE | 2021-04-04 14:35 | NUR ---
ADV. DIR, CONSULT [id number] WAS COMPLETED BY THIS GENERAL LITHOGRAPHIC WORKER. PATIEINT DID NOT COMPLETE THE DPOA FORM AT THIS TIME.
--- NOTE | 2021-04-04 14:40 | NUR ---
GENERAL CONSULT [id number] WAS COMPLETED AT THIS TIME.
[2021-04-04 20:15] VITALS: BP 147/70
--- NOTE | 2021-04-05 02:52 | NUR ---
PT CARE ASSUMED WITH PT IN BED SLEEPING AT SHIFT CHANGE.PT IS A/O X4.PT IS UP WITH MAX ASSIST X2 UP WITH GAIT BELT AND WALKER TO BSC OR BR.PT HAS LYPHMEDEMA WRAP ON BLE ..PT HAS A CAT CATHETER IN PLACE.PT IS ACCUCHECK ACHS WITH LOW SSI.PT HAS SCHEDULED TYLENOL FOR PAIN MANAGEMENT.PT IS ON 2L OF O2 FOR SOA.PT TAKES MEDS WHOLE WITH NO ISSUES.WILL CONTINUE TO MONITOR
[2021-04-05 05:21] LABS: INR 1.88; PROTIME 19.9 Seconds (10.5-12.1)
[2021-04-05 08:13] VITALS: BP 129/83
--- NOTE | 2021-04-05 13:52 | NUR ---
ASSUMED CARE AT 0700. PATIENT IS A&OX4. DENIES PAIN. REPORTS SOB AT EXERTION. ON CONT. 2L OF , VIA NC. PATIENT HAS BEEN REPORTING ANXIETY ABOUT HAVING ENOUGH TIME TO GO TO THE BATHROOM DUE TO DIARREAH, PRN LOPERAMIDE ADMINISTERED PER REQUEST OF PATIENT. AM BG WAS 73, PT DENIED S/S OF HYPOGLYCEMIA. ORANGE JUICE AND BREAKFAST PROVIDED TO PATIENT. LUNCH BG WAS 151, SLIDING SCALE INSULIN WAS HELD PER NURSING JUDGEMENT AND PATIENT'S AGREEMENT. PATIENT REPORETED SHE WANTS TO AVOID HAVING ANOTHER LOW BG LEVEL. LYMPHEDEMA WRAPS IN PLACE ON BLE. CAT IN PLACE, CLEAR SRTAW COLORED URINE NOTED. NO CONCERNS AT THIS TIME, WILL CONT. TO MONITOR.
[2021-04-05 20:08] VITALS: BP 116/69
--- NOTE | 2021-04-06 03:01 | NUR ---
assumed pt care at 1900, alert and oriented, denies pain or sob, refused scheduled tyl, assessments as charted, meds given as per mar, dewey in place, ble lymphedema wraps in place, no needs at this time, will continue to monitor and follow poc
[2021-04-06 06:04] LABS: INR 1.92; PROTIME 20.3 Seconds (10.5-12.1)
[2021-04-06 08:00] VITALS: BP 147/67
--- NOTE | 2021-04-06 19:47 | NUR ---
ASSUMED CARE AT 0700. A&OX4. REPORT SORE PAIN IN LEFT SHOULDER, PAIN MANAGED W/ PRN AND SCHEDULED TYLENOL. CAT CATHETER IN PLACE, CLEAR YELLOW URINE NOTED. CLARIFICATION ON D/C OF CATHETER WILL BE OBTAINED ON SATURDAY 04/07. PER NURSING JUDGEMENT PT CONTINUES ON TORESEMIDE, SO MONITOR OF I/O WILL BE MORE ACCURATE WITH CAT IN PLACE. ALSO, REDNESS NOTED IN KENN-AREA, SO HAVING CAT IN PLACE CAN AVOID FURTHER IRRITATION OF THIS AREA. PATIENT AGREE THAT LEAVING CAT IN PLACE IS BETTER FOR HER, ESPECIALLY WHILE SHE CONTINUE ON THE DIURETIC. PERICARE PROVIDED & PANNUS FOLDS CLEANED, NYASTATIN POWDER APPLIED TO GROIN AND PANNUS AREA. NO CONCERN AT THIS TIME WILL CONTINUE TO MONITOR.
[2021-04-06 21:14] VITALS: BP 117/65
--- NOTE | 2021-04-07 04:01 | NUR ---
PT LYING IN BED. DENIES NEED FOR PAIN MEDICATION. CAT IN PLACE. RESTING COMFORTABLY. NO NEEDS VOICED. CALL LIGHT WITHIN REACH. FREQUENT OBSERVATION.
[2021-04-07 06:26] LABS: INR 1.94; PROTIME 20.5 Seconds (10.5-12.1)
[2021-04-07 08:00] VITALS: BP 140/75
--- NOTE | 2021-04-07 16:44 | NUR ---
Received awake on bed. Due medications given as prescribed, able to swallow meds w/o difficulty. On O2 at 3lpm via nasal cannula. Vital signs stable. On MS, not on telemetry; no complains and signs of chest pain, crushing sensation and heaviness. Assisted in ADLs. On 2gm Na diet- tolerating well; no nausea, no vomiting and no abdominal pain. Medical Driver consult made for instructions and recommendations. On blood sugar monitoring, taken and recorded accordingly; with sliding scale insulin ordered- given as prescribed. With dewey in place; draining well; output measured and recorded accordingly. Falls bundle in place. Continent of bowels; able to have a bowel movement today- charted; used bedside commode with max assist of 2, gait belt and walker. With bilateral LE lymphedema wraps- done by OT. No IV noted. Complained of pain, on scheduled tylenol and diclofenac cream; given as prescribed. To continue monitoring patient.
[2021-04-07 20:00] VITALS: BP 108/78
--- NOTE | 2021-04-08 02:50 | NUR ---
ASSUMED PT CARE AT 1900.PT WAS OBSERVED LYING ON HER BED WATCHING TV AT SHIFT CHANGE.NO BM SO FAR.PT C/O ITCHING IN HER VAGINA,PHYSICIAN OFFICE ASSISTANT ON DUTY NOTIFIED ORDER NOTED FOR DIFLUCAN.PT REF TO TAKE THIS MED.PT STATED THAT THE MEDICATION MADE HER SICK THE LAST TIME SHE TOOK THE MED.PHYSICIAN OFFICE ASSISTANT NOTIFIED OF THIS,NEW ORDER NOTED AND CARRIED OUT.NYSTATIN POWDER AND INTER DRY APPLIED TO HER PANNUS.CAT CATH TO DD.PT ABLE TO MAKE HER NEEDS KNOWN.CALL LIGHT WITHIN REACH.
--- NOTE | 2021-04-08 13:15 | NUR ---
team meeting, recommendation: friend brought in clothes for her. re team with dc on ( pt, ot, st, nursing and sw). BPCI. max assistance at home, friends or private duty career and transition teacher. no driving.
--- NOTE | 2021-04-08 20:23 | NUR ---
ASSUMED CARE AT 0700. A&OX4. NO C/O PAIN. CAT CATHETER WAS D/C ON SHIFT. CURRENTLY ON DIURETIC TORESEMIDE, REPORTED DISCOMFORT WITH INCONTINENCE BRIEFS AND REQUESTED FOR BED PADS AND TOWELS TO BE USED INSTEAD. PATIENT HAS SOILED BED PADS AND TOWELS WITH URINE THREE TIMES DURING SHIFT, PATIENT ALERTED NURSE AFTER SOILING TO BE CHANGED. PATIENT IS REMINDED THAT SHE SHOULD CALL BEFORE VOIDING. AFTER THRID LINNEN CHANGE, PROCESS TO PUT EXTERNAL CATHETER IN PLACE WAS STARTED. PATIENT THEN STARTED EXPRESSING DISATISFACTION WITH HER CURRENT STAY. REQUESTED TO SPEAK A MANAGER MAINTENANCE. THIS REQUEST HAS BEEN PASSED ON TO ONCOMING SHIFT. PATIENT EXHIBITED DISTRESS, SO NURSE PROVIDED TIME AND SPACE TO ALLOW PATIENT TO EXPRESS HERSELF, AND REASSURED THAT HER CONCERNS ARE VALID AND WILL BE ADRESSED. Z-GUARD HAS BEEN APPLIED TO GROIN AREA AND BOTTOM PROTECTION AGAINST SKIN BREAKDOWN. PANNUS FOLD CLEANED, DRIED AND NYASTATIN POWDER APPLIED. INTERDRY ALSO PLACE UNDER PANNUS LOFT. BLE LYMPHEDEMA WRAPS IN PLACE. MEDICATION ADMINISTERED ORDERED, INSULIN WAS HELD FOR LUNCH PER PATIENT REQUEST, REPORTING FEAR THAT HER BG WILL DROP TOO LOW WITH 3 UNITS OF INSULIN. DINNER BG WAS 79. WILL CONTINUE TO MONITOR.
[2021-04-08 20:30] VITALS: BP 130/75
--- NOTE | 2021-04-08 23:51 | NUR ---
ASSUMED CARE OF PT AT 1915. PT IS A&OX4. IS ON 2L OF O2/NC. IS STABLE. DENIES PAIN. IS ANXIOUS AT TIMES. PT EXPRESSED BEING UNHAPPY WITH HOW HER CARE WAS EXPEDITED, & WOULD LIKE TO SPEAK WITH MANAGEMENT REGARDING THE ISSUES THAT SHE HAS FACED. THIS NURSE THERAPUETICALLY COMMUNICATED WITH THE PATIENT & APOLOGIZED. THE PT IS CURRENTLY ASLEEP. CALL LIGHT WITHIN REACH. WRAPS TO BILAT LES IN PLACE. LABS & VITALS REVIEWED. PT IS ABLE TO TURN SELF. QUEING PROVIDED & ASSISTANCES NEEDED. WILL CONTINUE TO MONITOR.
[2021-04-09 07:15] VITALS: BP 132/84
--- NOTE | 2021-04-09 17:16 | NUR ---
ASSUMED CARE AT SHIFT CHANGE. PT A/O X 4, CAN BE FORGETFUL AND ANXIOUS AT TIMES. PT PROGRESSING TOWARDS POC GOALS WITH THERAPY. PT REQUESTED ADJUSTMENTS IN MEDICATIONS TODAY WITH DANIELA MAHAN. EMAR UPDATED. PT ALSO REFUSED HER DIURETIC TODAY STATING SHE IS URINATING TOO OFTEN. UPDATED ON POC. HAD BM THIS AM. WILL CONT TO MONITOR AND FOLLOW POC.
[2021-04-09 20:25] VITALS: BP 130/84
--- NOTE | 2021-04-10 02:13 | NUR ---
PT ASSESSMENT COMPLETED AND VSS. MEDS GIVEN ORDERED AND WELL TOLERATED. FALL PRECAUTIONS IN PLACE. ASST WITH REPOSITION FOR COMFORT. PT ANGRY ABOUT HER CARE AND IS FRUSTRATED WITH ALL STAFF. SHE IS NOT SURE IF SHE WANTS TO STAY OR LEAVE THE HOSPITAL. SHE SAID THAT SHE WAS ANGRY THAT STAFF MENTIONED THAT SHE WAS WEAK AND STILL NEEDING HELP. SHE FEELS THAT SHE IS DOING FINE AND DOES NOT NEED HELP. PROVIDED MUCH EMOTIONAL SUPPORT. SLEEPING WELL. INC OF URINE DURING THE NIGHT. WILL CONTINUE TO MONITOR FREQUENTLY.
--- NOTE | 2021-04-10 05:16 | NUR ---
PT REFUSED LAB DRAW THIS MORNING. OFFERED TO PUT WARM BLANKETS ON HER ARMS TO HELP MADE THE DRAW EASIER ON HER. PT REFUSED. ENCOURAGED PT AND SAID THAT THE DOCTORS WOULD WANT TO SEE HER LAB RESULTS IN THE MORNING. PT STATES THAT SHE DID NOT CARE. PT DID NOT HAVE HER LABS COMPLETED THIS MORNING.
--- NOTE | 2021-04-10 07:42 | NUR ---
PT IS VERY AGITATED AND REFUSING TO TALK TO DR. IQBAL WITHOUT SOMEONE IN THE ROOM WITH HER. STATING, "I WOULD LIKE TO HAVE A BIG SAY IN WHAT IS IN MY BEST INTEREST ON AN EMOTIONAL LEVEL." REGARDINGMY EMOTIONAL STABILITY BEING HERE.
[2021-04-10 07:44] LABS: CALCIUM 9.2 mg/dL (8.5-10.1); POTASSIUM 3.8 mmol/L (3.5-5.1)
[2021-04-10 07:45] LABS: ABSOLUTE NEUTROPHILS 5.1 thou/uL (1.4-8.2); EOSINOPHILS 2.7 % (0.0-3.0); HEMATOCRIT 39.6 % (37.0-47.0); HEMOGLOBIN 12.4 gm/dL (12.0-15.0); LYMPHOCYTES 20.9 % (24.0-44.0); MCH 27.4 pg (26.0-34.0); MCHC 31.4 g/dL (28.0-37.0); MCV 87.3 fL (80.0-100.0); MONOCYTES 9.6 % (1.0-8.0); PLATELET COUNT 169 thou/uL (150-400); POLYS 65.8 % (36.0-66.0); RBC 4.53 mil/uL (4.20-5.00); RDW 16.3 % (10.5-14.5); WBC 7.7 thou/uL (4.0-11.0)
--- NOTE | 2021-04-10 08:04 | NUR ---
DR. IQBAL HAS BEEN MESSAGED WITH PT'S REQUEST TO MEET WITH HIM. PT IS REFUSING TO EAT BREAKFAST, REFUSING TO ALLOW NM TO ASSIST HER IN ANY WAY WITH ANYTHING, AND IS SITTING AT THE EDGE OF THE BED. OFFERED PAIN MEDS, TOILETING, REFUSED AM MEDICATIONS, REFUSED ALL ATTEMPTS AT CARE, REFUSED DIURETICS, BLOOD GLUCOSE CHECKS, HAS TOLD THE HISTORY TUTOR: "ONCE I AM TREATED EQUALLY, I WILL ALLOW YOU TO CARE FOR ME, BUT UNTIL THEN, I AM NOT ALLOWING ANYTHING TO BE DONE."
[2021-04-10 08:19] LABS: INR 2.22; PROTIME 23.3 Seconds (10.5-12.1)
--- NOTE | 2021-04-10 08:27 | NUR ---
PT REFUSED TORSEMIDE THIS MORNING AND STATED THAT SHE WOULD NOT TAKE IT UNLESS CARDIOLOGY VISITS WITH HER. SHE SAYS THAT ALL STAFF HAVE BEEN TERRIBLE TO HER. ALSO, SHE SAID THAT THERE WAS SOMETHING FUNNY GOING ON IN THIS HOSPITAL AND THAT SHE DOESN'T TRUST THIS HOSPITAL, STAFF, OR INSURANCE. RN PROVIDED EMOTIONAL SUPPORT.
--- NOTE | 2021-04-10 08:44 | NUR ---
PT STATED THAT SHE HAS A FRIEND COMING TO BE AN ADVOCATE AT 1030. PT REFUSING ALL CARE UNTIL HER FRIEND ARRIVES. NM MET WITH PATIENT FOR EXTENDED PERIOD OF TIME LAST NIGHT. PT ALSO MET WITH NM AND BELLOWS FILLER THIS MORNING FOR AN EXTENDED PERIOD OF TIME. PT CONTINUES TO REFUSE ALL CARE, DESPITE REASSURANCE AND MULTIPLE ISSUES WITH DISCHARGE PLANNING AND MISTRUST THAT WE WILL NOT ALLOW HER TO GO HOME ON WEDNESDAY. BELLOWS FILLER TRAV [place] TO CONTACT HOME HEALTH WITH DISCHARGE.
--- NOTE | 2021-04-10 08:51 | NUR ---
PT REQUESTED THAT CONSULTANT INTERNLOG MANAGER [facility].
[2021-04-10] MEDS ORDERED: VITAMIN D325 MC1 PO (09:17)
[2021-04-10] MEDS ORDERED: VOLTAREN100 GM TOP (09:17)
[2021-04-10] MEDS ORDERED: VITAMIN B-12500 MCG PO (09:17)
[2021-04-10] MEDS ORDERED: LOPERAMIDE 2 MG2 MG PO (09:20)
[2021-04-10] MEDS ORDERED: DICYCLOMINE HCL20 MG PO (09:20)
--- NOTE | 2021-04-10 09:20 | NUR ---
trena notified by nurse unite camp manager that mostly she will dc home today with hh, and [facility]. [facility], [facility], she will need lymphedema warps. will cont following as needed for dc needs. she has been refusing all care and waiting for her friend to arrive.
[2021-04-10 11:44] VITALS: BP 130/84
--- NOTE | 2021-04-10 11:51 | NUR ---
PT IS TOLERATING ROOM AIR WITH O2 SAT >95%.
--- NOTE | 2021-04-10 13:15 | NUR ---
PATIENT WAS DISCHARGED AT 1315. SHE LEFT WITH SECURE TRANSPORT. SHE REFUSED TO WHEEL HERSELF OUT. DISCHARGE AND MEDICATION EDUCATION PROVIDED. PATIENT VOICED UNDERSTANDING, AND SIGNED CONSENT. PATIENT REFUSED ALL MEDICATIONS AND TREATMENTS BEFORE DISCHARGING, AFTER BEING RE-APPROACHED ABOUT ADMNISTERING THEM. PATIENT REFUSED TO HAVE HER BG LEVEL CHECKED BEFORE LEAVING, SNACKS WERE PROVIDED AND PATIENT ATE THEM BEFORE LEAVING. PATIENT LEFT WITH HER WALKER, AND IS GOING HOME WITH HOMEHEALTH.
[2021-04-11] MEDS ORDERED: DILTIAZEM ER180 M2 PO (09:32)
[2021-04-11] MEDS ORDERED: DEMADEX20 MG PO (09:32)
--- NOTE | 2021-04-11 17:00 | PLAN ---
[facility] [place] [address] REHAB UNIT PLAN OF CARE Name: HUNTER NAILS Room #: 516-1 [facility] IN M.R.#: [id number] Admission: 04/03/21 Attend Phys: Brayan Sharma MD Discharge: 04/10/21 Date of : 53 Report #: [id number] THIS REPORT FOR: cc: Liya Serrano MD, Julie MD [place],Brayan Garcia MD ~ DOC #: [id number] Brayan Sharma MD DATE OF SERVICE: 04/05/2021 PROGRESS NOTE AND OVERALL PLAN OF CARE HISTORY OF PRESENT ILLNESS: The patient was seen earlier on the inpatient rehabilitation arreaga. She was in no distress. Last recorded temperature 36.6, pulse 73, respirations 18, and blood pressure 129/83. She has lymphedema wraps on bilateral lower extremities. Nunez catheter is in place. She is significantly obese. She is a very pleasant lady. 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 Functionally, she is transferring with max assist of 2, gait training, max assist of 12 feet with a front-wheeled walker. In occupational therapy, upper body dressing, supervision with lower body dressing, dependent. In speech therapy, she has mild comprehensive deficits, mild cognitive deficits. ASSESSMENT: 1. Medical complexity with generalized debilitation. 2. Congestive heart failure with recent acute exacerbation. 3. Acute hypoxic respiratory failure. 4. Bilateral lower extremity lymphedema and cellulitis. 5. Atrial fibrillation with rapid ventricular response, now rate controlled. 6. Diabetes mellitus type 2 with peripheral neuropathy. 7. History of noncompliance with medications. 8. Morbid obesity. 9. Depression. PLAN: The overall plan of care is based on the pre-admit screen and information garnered from therapy assessments. 1. Estimated length of stay is probably around 2 to 2-1/2 weeks. 2. Medical prognosis reasonably good. 3. Anticipated interventions includes the interdisciplinary acute inpatient rehabilitation program. 4. Anticipated functional outcomes would be for the patient to become modified independent with transfers, mobility and ADLs, so that she can hopefully return back to her home setting. 5. Discharge destination would be back to her home where she lives alone. No stairs, utilizing a front-wheeled walker. She does have some friends that are supportive. [address] [address] REHAB UNIT PLAN OF CARE Name: HUNTER NAILS Gabe Room #: 516-1 [facility] IN [facility].#: [id number] Admission: 04/03/21 Attend Phys: Brayan Sharma MD Discharge: 04/10/21 Date of : 51 Report #: [id number] 6. Expected therapy by discipline includes PT, OT and speech 1 hour per day each five days a week throughout the duration of the acute inpatient rehabilitation stay. She does have some mild cognitive deficits with some moderate memory deficits with speech therapy involved as well. ADDENDUM: The patient's prognosis for significant practical improvement within a reasonable period of time appears good. Given the patient's complex medical condition and risk of further medical complications, rehabilitation services cannot be safely provided at a lower level of care such as a [facility] facility. Brayan Sharma MD DGS <ELECTRONICALLY SIGNED> By: Brayan Sharma MD 04/11/21 1700 1236 [id number] Brayan Sharma MD /nt
--- NOTE | 2021-04-13 12:46 | HC ---
[facility] [place] [address] CONSULTATION Name: HUNTER NAILS Room #: 516-1 [facility] IN .R.#: [id number] Admission: 04/03/21 Attend Phys: Brayan Sharma MD Discharge: 04/10/21 Date of : 51 Report #: [id number] THIS REPORT FOR: cc: Liya Serrano MD, Julie MD Deutch,Harman Hernandez. PhD ~ DOC #: [id number] Harman Mooney, PhD DATE OF SERVICE: 04/06/2021 NEUROBEHAVIORAL ASSESSMENT ATTENDING PHYSICIAN: Brayan Sharma MD MAGAZINE SUPERVISOR: Harman Mooney, Ph.D. CLINICAL PRESENTATION: The patient is a 66-year-old female admitted to the hospital on 03/29/2021 with increased lower extremity swelling and shortness of breath. She had a fall at her home onto her left knee. The patient was diagnosed with mild CHF, AE with an echocardiogram of ejection fraction of 50-55% and moderate mitral regurgitation. Her medical problem list included atrial fibrillation with RVR, bilateral lower leg cellulitis, congestive heart failure, fall, knee pain and sepsis. Her assessment on admission to the rehabilitation unit was medical complexity with general debilitation, CHF AE with an ejection fraction of 50-55%, acute hypoxic respiratory failure, bilateral lower extremity lymphedema with cellulitis and positive for Staph, atrial fibrillation, type 2 diabetes mellitus with peripheral neuropathy, history of noncompliance with medication, morbid obesity and depression. A complete description of her medical condition and history can be found in her medical record. Neuropsychological consultation was requested to provide assistance in the assessment of cognitive and emotional status and provide recommendations and services. Prior to this most recent admission, she was living independently in her own home. 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 She does not have children. The patient indicates that she was independent with driving and all instrumental activities of daily living prior to this most recent medical event. She reports not managing her health very well prior to her admission. TECHNIQUES UTILIZED: Clinical interview, review of medical records, staff consultation and behavioral observation, mini-mental status exam to standard version, clock drawing and a brief verbal fluency assessment. EXAMINATION FINDINGS: The patient was alert and cooperative with the [facility] [address] [place] [address] CONSULTATION Name: HUNTER NAILS Room #: 516-1 [facility] [place] [facility].#: [id number] Admission: 04/03/21 Attend Phys: Brayan Sharma MD Discharge: 04/10/21 Date of : 51 Report #: [id number] assessment. There is no evidence of aphasia. Her thoughts are logical and goal oriented. There is no evidence of thought disorder. She did not report auditory or visual hallucinations. She describes having had previous treatment for depression, anxiety and possibly obsessive compulsive disorder. She indicates having some difficulty with memory that she attributes to normal aging. Occasional difficulty with word finding is reported. She does not report alcohol/marijuana or tobacco abuse. Performance on the MMSE 2 brief version was within normal limits. RAW score is 16/16. Performance on the MMSE 2 standard versions within normal limits with the raw score of 30/30. The patient had difficulty with clock drawing. Evidence of deficits in visual spatial organization are suggested. Brief letter fluency was in the low average range at the 14th percentile. Brief category fluency was average at the 42nd percentile. The patient is presenting with mild difficulty in cognition most likely associated with executive functioning and higher level thought organization. Previous history of treatment for depression as noted. DIAGNOSTIC IMPRESSION: Mild neurocognitive disorder, unspecified, without behavior disorder. Unspecified depressive disorder with anxiety. RECOMMENDATIONS: The patient indicates a desire for outpatient psychotherapy. Continued psychiatric management of medication for mood will be of benefit. Arrangements for outpatient counseling will also be of help in her overall adjustment following discharge. Educational information regarding her health care needs is indicated. The patient may need increased assistance in establishing a structure for improving self managment personal health including medication upon discharge. Thank you very much for allowing me to provide the consultation on this patient. Harman Mooney, PhD [facility] [address] CONSULTATION Name: HUNTER NAILS Gabe Room #: 516-1 [facility] IN ..#: [id number] Admission: 04/03/21 Attend Phys: Brayan Sharma MD Discharge: 04/10/21 Date of : 51 Report #: [id number] <ELECTRONICALLY SIGNED> By: Harman Mooney, PhD 04/13/21 [id number] Harman Mooney, PhD /nt
== END 2021-04-10 13:23 | disposition home health service (06) | DRG 947 ==
LOC: RT 07:59
PROVIDERS: Nurse Practitioner; Nurse Practitioner Family; ADMIT Physical Medicine & Rehabilitation; ATTEND Physical Medicine & Rehabilitation
DX: R53.81 Other malaise (principal); J96.01 Acute respiratory failure with hypoxia; I50.33 Acute on chronic diastolic (congestive) heart failure; E44.1 Mild protein-calorie malnutrition; L03.116 Cellulitis of left lower limb; L03.115 Cellulitis of right lower limb; Z68.43 Body mass index [BMI] 50.0-59.9, adult; I48.91 Unspecified atrial fibrillation; I11.0 Hypertensive heart disease with heart failure; E66.01 Morbid (severe) obesity due to excess calories; I89.0 Lymphedema, not elsewhere classified; E11.42 Type 2 diabetes mellitus with diabetic polyneuropathy; Z60.2 Problems related to living alone; F41.8 Other specified anxiety disorders; G31.84 Mild cognitive impairment of uncertain or unknown etiology; K58.0 Irritable bowel syndrome with diarrhea; M17.0 Bilateral primary osteoarthritis of knee; K44.9 Diaphragmatic hernia without obstruction or gangrene; Z79.899 Other long term (current) drug therapy; Z91.14 Patient's other noncompliance with medication regimen; Z88.2 Allergy status to sulfonamides; Z88.8 Allergy status to other drugs, medicaments and biological substances; Z87.891 Personal history of nicotine dependence; Z79.84 Long term (current) use of oral hypoglycemic drugs
CPT/HCPCS: 10112